=== PATIENT | male | born 1975 | race Caucasian/White ===

== ENCOUNTER 2024-09-03 12:40 | Emergency (ER) | payer OTHER ==
[~2024-09-03] VITALS: Ht 177.8 cm; Wt 81.6 kg
[2024-09-03 13:13] VITALS: BP 119/73; TEMP 98.4; O2SAT 100
== END 2024-09-03 14:07 | disposition left against medical advice (07) ==
LOC: ER 12:49
DX: K40.90 Unilateral inguinal hernia, without obstruction or gangrene, not specified as recurrent (principal); F17.200 Nicotine dependence, unspecified, uncomplicated; Z53.29 Procedure and treatment not carried out because of patient's decision for other reasons